=== PATIENT | male | born 1965 | race Caucasian/White ===

== ENCOUNTER 2020-09-07 15:56 | Emergency (ER) | payer OTHER ==
[~2020-09-07] VITALS: Ht 182.9 cm; Wt 117.0 kg
--- NOTE | 2020-09-08 13:49 | EKG ---
[facility] [address] [facility] [place], [place] [address] Signed Sinus rhythm with frequent and consecutive premature ventricular complexes Cannot rule out Inferior infarct , age undetermined Abnormal ECG No previous ECGs available Confirmed by RAQUEL OWENS MD ([id number]) on 09/08/2020 1:49:22 PM Electronically Signed By: RAQUEL OWENS MD 09/08/20 1349 PATIENT NAME: ANNEMARIE SINGH JIMMY Electrocardiogram DATE OF : 65 PHYSICIAN: RAQUEL OWENS MD REPORT #: [id number] REPORT IS CONFIDENTIAL AND NOT TO BE RELEASED WITHOUT AUTHORIZATION
--- NOTE | 2020-09-08 13:50 | EKG ---
[facility] [address] [facility] [place] [address] Signed Sinus rhythm with marked sinus arrhythmia Inferior infarct (cited on or before 07-SEP-2020) Abnormal ECG When compared with ECG of 07-SEP-2020 15:57, (Unconfirmed) premature ventricular complexes are no longer present Questionable change in initial forces of Inferior leads QT has shortened Confirmed by RAQUEL OWENS MD ([id number]) on 09/08/2020 1:49:44 PM Electronically Signed By: RAQUEL OWENS MD 09/08/20 1350 PATIENT NAME: ANNEMARIE SINGH Electrocardiogram DATE OF : 65 PHYSICIAN: RAQUEL OWENS MD REPORT #: [id number] REPORT IS CONFIDENTIAL AND NOT TO BE RELEASED WITHOUT AUTHORIZATION
== END 2020-09-07 17:35 | disposition short-term general hospital (02) ==
LOC: ED 15:56
DX: I25.10 Atherosclerotic heart disease of native coronary artery without angina pectoris (principal); I47.2 Ventricular tachycardia; I25.2 Old myocardial infarction; E11.9 Type 2 diabetes mellitus without complications; Z87.891 Personal history of nicotine dependence; Z88.8 Allergy status to other drugs, medicaments and biological substances; Z20.822 Contact with and (suspected) exposure to COVID-19
CPT/HCPCS: 71045; 80053; 84484; 85025; 93005; 93010; 96374; 96375; 99285-25; C9803; J0282; J2270; U0003

== ENCOUNTER 2020-11-28 14:49 | Emergency (ER) | payer OTHER ==
[~2020-11-28] VITALS: Ht 182.9 cm; Wt 117.0 kg
[2020-11-28] MEDS ORDERED: ALLOPURINOL100 MG PO (14:57)
[2020-11-28] MEDS ORDERED: ATORVASTATIN CA40 MG PO (14:57)
[2020-11-28] MEDS ORDERED: XARELTO20 MG PO (14:58)
[2020-11-28] MEDS ORDERED: LEVOTHYROXINE137 MCG PO (14:58)
[2020-11-28] MEDS ORDERED: NITROGLYCERIN0.4 MG SL (14:58)
[2020-11-28] MEDS ORDERED: FEBUXOSTAT40 MG PO (14:59)
[2020-11-28] MEDS ORDERED: CLOPIDOGREL75 MG PO (14:59)
[2020-11-28] MEDS ORDERED: AMLODIPINE BES2.5 MG PO (14:59)
[2020-11-28] MEDS ORDERED: EZETIMIBE10 MG PO (14:59)
[2020-11-28] MEDS ORDERED: FAMOTIDINE20 MG PO (14:59)
[2020-11-28] MEDS ORDERED: SPIRONOLACTONE25 MG PO (15:00)
[2020-11-28] MEDS ORDERED: SOTALOL80 MG PO (15:00)
[2020-11-28] MEDS ORDERED: PANTOPRAZOLE SO40 MG PO (15:00)
[2020-11-28] MEDS ORDERED: ISOSORBIDE MONO30 MG PO (15:00)
[2020-11-28] MEDS ORDERED: ATORVASTATIN CA80 MG PO (15:01)
--- NOTE | 2020-11-29 08:20 | EKG ---
[facility] [address] [facility] [place] [address] Signed Sinus bradycardia Otherwise normal ECG When compared with ECG of 07-SEP-2020 15:58, Criteria for Inferior infarct are no longer present Inverted T waves have replaced nonspecific T wave abnormality in Inferior leads Confirmed by KALA ADAMS DO ([id number]) on 11/29/2020 8:20:03 AM Electronically Signed By: KALA ADAMS DO 11/29/20 0820 PATIENT NAME: ANNEMARIE SINGH Electrocardiogram DATE OF : 65 PHYSICIAN: KALA ADAMS DO REPORT #: [id number] REPORT IS CONFIDENTIAL AND NOT TO BE RELEASED WITHOUT AUTHORIZATION
== END 2020-11-28 17:20 | disposition home or self-care (01) ==
LOC: ED 14:49
DX: I25.10 Atherosclerotic heart disease of native coronary artery without angina pectoris (principal); E11.40 Type 2 diabetes mellitus with diabetic neuropathy, unspecified; J44.9 Chronic obstructive pulmonary disease, unspecified; F03.90 Unspecified dementia, unspecified severity, without behavioral disturbance, psychotic disturbance, mood disturbance, and anxiety; Z88.8 Allergy status to other drugs, medicaments and biological substances; Z79.899 Other long term (current) drug therapy
CPT/HCPCS: 71046; 80053; 83735; 84484; 85025; 93005; 93010; 99285-25

== ENCOUNTER 2021-12-13 10:25 | Day surgery (SDC) | payer OTHER ==
--- NOTE | 2021-12-12 20:18 | EKG ---
[facility] [address] [facility] [place] [address] Signed Poor data quality Sinus bradycardia Low voltage QRS Inferior infarct , age undetermined Abnormal ECG When compared with ECG of 28-NOV-2020 14:52, Inferior infarct is now present Confirmed by PRIYANKA ELIZALDE MD ([id number]) on 12/12/2021 8:18:30 PM Electronically Signed By: PRIYANKA ELIZALDE MD 12/12/212017 PATIENT NAME: ANNEMARIE SINGH JIMMY Electrocardiogram DATE OF : 65 PHYSICIAN: PRIYANKA ELIZALDE MD REPORT #: [id number] REPORT IS CONFIDENTIAL AND NOT TO BE RELEASED WITHOUT AUTHORIZATION
[~2021-12-13] VITALS: Ht 182.9 cm; Wt 122.7 kg
[~2021-12-13 10:25] MED LIST: ALLOPURINOL100 MG PO; AMLODIPINE BES2.5 MG PO; ATORVASTATIN CA40 MG PO; ATORVASTATIN CA80 MG PO; CLOPIDOGREL75 MG PO; COMBIVENT RESPIM4 GM INH; D3 DOTS50 MCG PO; EZETIMIBE10 MG PO; FAMOTIDINE20 MG PO; FEBUXOSTAT40 MG PO; INDAPAMIDE1.25 MG PO; ISOSORBIDE MONO30 MG PO; LAMICTAL100 MG PO; LEVOTHYROXINE137 MCG PO; NITROGLYCERIN0.4 MG SL; PANTOPRAZOLE SO40 MG PO; SINGULAIR10 MG PO; SOTALOL80 MG PO; SPIRONOLACTONE25 MG PO; VENTOLIN HFA18 GM; XARELTO20 MG PO
--- NOTE | 2021-12-13 10:49 | NUR ---
UNSTEADY ON FEET X2 YEARS. LAST FALL 1 WEEK AGO. REPORTS NO INJURY.
--- NOTE | 2021-12-13 10:50 | NUR ---
LLE PAIN 2/10 FROM LYPHEDEMA REPORTS PT.
--- NOTE | 2021-12-13 12:28 | NUR ---
12/13/21 1228 Bettina Carter 1210-PATIENT ARRIVED TO PACU ON 6L MASK NONAROUSABLE LAYING PRONE. GREEN SPUTUM COMING FROM PATIENTS NOSTRILS AND MOUTH. RN, [employer] REPOSITIONED PATIENT TO THE SIDE AND SUCTIONED. PATIENT BECAME REACTIVE TO VERBAL STIMULI OPENING EYES. SR IVF INFUSING. 1212-BP TAKEN WHILE ON LEFT SIDE PATIENT REACTIVE TO VERBAL STIMULI REPORTS "SORE THROAT" 6L MASK 97% RR EVEN 1215-PATIENT REPOSITIONED WITH RNS ASSISTANCE TO BACK AND HOB ELEVATED. PATIENT REQUESTING WATER. PLACED ON RA RR EVEN 1224-PATIENT AWAKE DENIES PAIN OR NAUSEA. HOB ELEVATED PATIENT TAKING SIPS OF WATER. RA 96% RR EVEN. PATIENT DENIES SORE THROAT.
--- NOTE | 2021-12-15 15:04 | PATH ---
[facility] [address] [facility] [place], [place] [address] Signed SPECIMEN(S): A BONE MARROW SPECIMEN(S): B COMPREHENSIVE FLOW CYTOMETRY ONLY, BM EDTA CLINICAL HISTORY: 56-year-old male with chronic hypogammaglobulinemia. Evaluate for B-cell malignancy. D80.1 (non-familial hypogammaglobulinemia) DIAGNOSIS SUMMARY: Peripheral blood - No morphologic abnormalities identified. Bone marrow aspirate smears and core biopsy: - Normocellular bone marrow with trilineage progressive hematopoiesis. - Negative for morphologic features of myelodysplastic syndrome (MDS). - Negative for morphologic features of myeloproliferative neoplasm (MPN). - Negative for features of B-cell lymphoproliferative neoplasm. - Negative for increase in plasma cells or infiltrative bone marrow processes. - Please see Diagnostic Comment. DIAGNOSTIC COMMENT: The patient's history of chronic renal disease and hypogammaglobulinemia is noted. Overall, morphologic examination of the bone marrow is unremarkable with no abnormal population of B-cells or plasma cells identified. Concurrent flow cytometry also shows normal phenotype. NA:slh:C2NR PERIPHERAL BLOOD: HEMOGRAM ([facility], 12/13/2021): WBC 7.3 K/uL, RBC 4.71 M/uL, HGB 14.9 g/dL, HCT 44.1%, MCV 93.7 fL, MCH 31.6 pg, MCHC 33.7 g/dL, RDW 13.9%, PLT 202 K/uL. DIFFERENTIAL COUNT (manual): 69% neutrophils, 15% lymphocytes, 10% monocytes and 6% eosinophils. Review of peripheral blood smear and CBC data demonstrate that the RBCs are normal in number and are normocytic and normochromic with no anemia present. The WBCs are also normal in number and distribution. The neutrophils show unremarkable morphology. The neutrophils show unremarkable morphology. No immature cells are seen. The lymphocytes and monocytes show a spectrum of reactive morphology. The platelets are normal in number and unremarkable in morphology. BONE MARROW: BONE MARROW ASPIRATE SMEARS AND IMPRINTS: The bone marrow aspirate smears are PATIENT NAME: ANNEMARIE SINGH PATHOLOGY DATE OF : 65 REPORT #: [id number] PHYSICIAN: AUGUSTO RICHARDSON PCP: NO PRIMARY CARE PHYSICIAN REPORT IS CONFIDENTIAL AND NOT TO BE RELEASED WITHOUT AUTHORIZATION [facility] [address] [place], [place] [address] Signed hypocellular with rare bone marrow particles present. Only a few scattered hematopoietic elements are present showing progressive ordinary maturation. There is no increase in blasts noted. No dyshematopoiesis is identified. Occasional rare megakaryocytes are encountered. BONE MARROW DIFFERENTIAL COUNT (100 cell count): 3% blasts, 1% promyelocytes, 6% myelocytes, 25% segmented neutrophils, 16% lymphocytes, 3% monocytes, 5% eosinophils, and 40% erythroid. BONE MARROW CORE BIOPSY: The bone marrow core biopsy demonstrates normocellular bone marrow for age with an average cellularity of 40%. Trilineage hematopoiesis is present with progressive ordinary maturation. There are no lymphoid aggregates, granulomas or metastatic tumor cells present. The megakaryocytes are scattered and appear normal in number, morphology and distribution. SPECIAL STAINS (performed with appropriate reactive control): - Iron (aspirate smear): Increased storage iron; negative for ring sideroblasts. - Iron (block A1): Increased storage iron; negative for ring sideroblasts. - Reticulin stain (block A1): Mild increase in bone marrow reticulin fibrosis, MF-1. IMMUNOHISTOCHEMICAL STAINS (performed on block A1 with appropriate reactive control): - CD34: Negative for increased number of blasts. - CD117: Negative for increased number of blasts. - CD20: Negative for increased number of B-cells. - CD138: Highlights scattered plasma cells (2-3%). - CD71: Highlight erythroid precursors. - Myeloperoxidase: Highlight myeloid precursors. - Factor VIII: Highlights megakaryocytes. NA:[facility] FLOW CYTOMETRY: Bone marrow aspirate, flow cytometry: - No increase in blasts (1% myeloblasts). - Normal myeloid maturation. - No atypical lymphoid cell population. - See comment. COMMENT: While no hematopoietic abnormality is detected in this study, correlation with clinical, morphologic, and genetic findings is recommended for full interpretation and to assess for disease processes not fully examined by flow cytometry analysis, including PATIENT NAME: ANNEMARIE SINGH PATHOLOGY DATE OF : 65 REPORT #: [id number] PHYSICIAN: AUGUSTO PATHOLOGY PCP: NO PRIMARY CARE PHYSICIAN REPORT IS CONFIDENTIAL AND NOT TO BE RELEASED WITHOUT AUTHORIZATION [facility] [address] [place], [place] [address] Signed myelodysplastic syndrome and myeloproliferative neoplasm. FLOW CYTOMETRY ANALYSIS: FLOW DIFFERENTIAL (% Total CD45 vs. SSC gating): Myeloid 85%; Lymphoid 6%; Monocyte 3%; Dim CD45/Blast: 1%. Cell Count: 3.2 x 10*3/uL. POPULATION ANALYSIS: BLASTS: Analysis of the dim CD45 gate demonstrates 1% myeloblasts by CD34/CD117. LYMPHOID CELLS: The lymphocyte gate comprises 6% of total events and includes 91% T-cells with a CD4:CD8 ratio of 1.5:1 and normal avilez T-cell antigen expression. 2% of lymphocytes are polyclonal B-cells with a kappa:lambda ratio of 1.4:1. The remainders are NK-cells. MYELOID CELLS: The myeloid population comprises 85% of the total events. No aberrant or immature immunophenotypic expression is detected. MONOCYTES: The monocyte population comprises 3% of the total events. Monocytes are not increased. No aberrant immunophenotypic expression is detected. PLASMA CELLS: A significant plasma cell population is not detected in the neg-dimCD45/CD38 screening gate. ANTIBODIES USED: KAPPA, LAMBDA, CD20, CD10, CD19, CD23, CD38, CD16, CD56, CD8, CD5, CD2, CD4, CD7, CD3, CD14, CD33, CD13, HLADR, CD34, CD117, CD15, CD45: TOTAL ANTIBODIES USED: 23. TCS GROSS DESCRIPTION: Two specimens are received in two containers, labeled "DK." A. The specimen, labeled "DK, core," is received in formalin and consists of two cylindrical bone core fragments measuring 0.2 in diameter and 1.0-1.2 in length. The specimen is entirely submitted in cassette A1 following decalcification in Immunocal. Cold ischemic time: Cannot be determined because of lack of information Approximate time in formalin: Six hours B. The specimen, labeled "DK, no clot," is received in formalin and consists of no clot material or tissue received. No block is submitted. Bone marrow inventory also includes: Two peripheral smears, it two heparin tubes (one bone marrow, one peripheral blood) AT (under the direct supervision of a pathologist) The Gross Description was prepared using a voice recognition system. The report was reviewed for accuracy; however, sound-alike word errors, addition and/or deletions may occur. If there is any PATIENT NAME: ANNEMARIE SINGH PATHOLOGY DATE OF : 65 REPORT #: [id number] PHYSICIAN: AUGUSTO PATHOLOGY PCP: NO PRIMARY CARE PHYSICIAN REPORT IS CONFIDENTIAL AND NOT TO BE RELEASED WITHOUT AUTHORIZATION [facility] [address] [place], [place] [address] Signed question about this report, please contact Client Services. ADDITIONAL NOTES: Immunohistochemical and/or in situ hybridization studies were performed on this case with the appropriate positive controls that react as expected. This test was developed and its performance characteristics determined by [employer]. It has not been cleared or approved by the U.S. Food and Drug Administration. The FDA has determined that such clearance or approval is not necessary. This test is used for clinical purposes. It should not be regarded as investigational or for research. [facility] is certified under the Clinical Laboratory Improvement Amendments of 1988 (CLIA) as qualified to perform high complexity clinical laboratory testing. This assay has not been validated for specimens that have been decalcified. In this case, certain antibodies were performed by both immunohistochemistry and flow cytometry analysis because flow cytometry analysis did not fully explain all the light microscopic findings. Immunohistochemistry aided in the analysis. Both methods are deemed medically necessary in this case. This test was developed and its performance characteristics determined by [employer]. It has not been cleared or approved by the US Food and Drug Administration. The FDA does not require this test to go through premarket FDA review. This test is used for clinical purposes. It should not be regarded as investigational or for research. This laboratory is certified under the Clinical Laboratory Improvement Amendments (CLIA) as qualified to perform high complexity clinical laboratory testing. PERFORMING LABORATORY: The technical component was performed by [facility], [address] [place] [address] (CLIA#: [id number]). Professional interpretation was performed by [facility], [facility], [address] [place] [address] (CLIA#: [id number]) FINAL DIAGNOSIS PERFORMED BY: Roxana Ramirez MD, FACP, Dec 14 2021 2:04PM The technical component was performed by [facility], [address] [place] [address] (CLIA# [id number]). [facility], [address] [place] [address] (CLIA#: [id number]) PATIENT NAME: ANNEMARIE SINGH PATHOLOGY DATE OF : 65 REPORT #: [id number] PHYSICIAN: AUGUSTO PATHOLOGY PCP: NO PRIMARY CARE PHYSICIAN REPORT IS CONFIDENTIAL AND NOT TO BE RELEASED WITHOUT AUTHORIZATION [address] [address] Signed IMAGES: A: [id number] A: [id number] Diagnostician: Roxana Ramirez MD, FACP Pathologist Electronically Signed 12/15/2021 Copies: ~ PATIENT NAME: ANNEMARIE SINGH PATHOLOGY DATE OF : 65 REPORT #: [id number] PHYSICIAN: AUGUSTO PATHOLOGY PCP: NO PRIMARY CARE PHYSICIAN REPORT IS CONFIDENTIAL AND NOT TO BE RELEASED WITHOUT AUTHORIZATION
== END 2021-12-13 12:50 | disposition home or self-care (01) ==
LOC: OPS 10:25 → DS 10:25 → OPS 12:00 → DS 12:00 → OPS 12:50
PROVIDERS: ATTEND Specialist
PROC: 079T3ZX Drainage of Bone Marrow, Percutaneous Approach, Diagnostic (ICD-10-PCS; 2021-12-13)
PROC: 07DR3ZX Extraction of Iliac Bone Marrow, Percutaneous Approach, Diagnostic (ICD-10-PCS; principal; 2021-12-13 12:00)
DX: D80.1 Nonfamilial hypogammaglobulinemia (principal); I25.10 Atherosclerotic heart disease of native coronary artery without angina pectoris; J45.909 Unspecified asthma, uncomplicated; E11.22 Type 2 diabetes mellitus with diabetic chronic kidney disease; N18.9 Chronic kidney disease, unspecified; G47.33 Obstructive sleep apnea (adult) (pediatric); I25.2 Old myocardial infarction; Z87.891 Personal history of nicotine dependence; Z88.8 Allergy status to other drugs, medicaments and biological substances; Z88.0 Allergy status to penicillin; Z88.6 Allergy status to analgesic agent
CPT/HCPCS: 36415; 80074; 85025; J2001; J2405; J2704; J3010; J7121

== ENCOUNTER 2024-04-15 13:16 | Emergency (ER) | payer OTHER ==
[~2024-04-15] VITALS: Ht 182.9 cm; Wt 127.2 kg
[~2024-04-15 13:16] MED LIST changes: +PREDNISONE20 MG PO; +VENTOLIN HFA18 GM INH
[2024-04-15] MEDS ORDERED: ALBUTEROL/IPRATROPIUM 3 ML NEB INH PRN (13:30)
[2024-04-15] MEDS ORDERED: ALBUTEROL SULFATE 0.5% 2.5 MG/0.5 ML VIAL INH ONE (13:30)
[2024-04-15 13:41] LABS: BASOPHILS 0.4 % (0-2); EOSINOPHILS 3.2 % (0-6); HEMATOCRIT 46.3 % (35.0-50.0); LYMPHOCYTES 9.6 % (24-44); MCH 32.7 (27-36); MCHC 34.5 g/dl (30-36); MCV 94.5 fl (81-99); MONOCYTES 9.5 % (0-12); NEUTROPHILS 77.3 % (39-80); PLATELET COUNT 191 K/uL (140-440); RBC 4.89 M/ul (4.3-5.7); RDW 13.9 (10.5-15.0)
[2024-04-15] MEDS ORDERED: MAGNESIUM SULFATE 2 GM/50 ML BAG IV ONE (14:00)
[2024-04-15 14:03] LABS: ALBUMIN 3.9 g/dL (3.4-5.0); ALBUMIN/GLOBULIN RATIO 1.34 (1.1-2.4); ANION GAP 14.2 (7-21); BILIRUBIN, TOTAL 0.9 ng/dL (0.2-1.0); BUN/CREATININE RATIO 6.47 (6.0-28.6); CALCIUM 10.2 mg/dL (8.5-10.1); CREATININE, SERUM 1.39 mg/dL (0.70-1.30); MAGNESIUM 1.7 mg/dL (1.8-2.4); POTASSIUM 4.2 mmol/L (3.5-5.1); PROTEIN, TOTAL 6.8 g/dL (6.4-8.2)
[2024-04-15 15:07] LABS: LACTIC ACID, BLOOD 2.4 mmol/L (0.4-2.0)
[2024-04-15 15:11] LABS: INFLUENZA B NAA NEGATIVE (NEGATIVE); RESPIRATORY SYNCYTIAL VIR NAA NEGATIVE (NEGATIVE)
[2024-04-15] MEDS ORDERED: CEFTRIAXONE/SODIUM CHLORIDE 2 GM/100 ML PIGGYBACK IV ONE (15:45)
[2024-04-15] MEDS ORDERED: ALBUTEROL/IPRATROPIUM 3 ML NEB INH ONE (16:00)
[2024-04-15] MEDS ORDERED: SODIUM CHLORIDE 0.9% 1,000 ML IV PRN (16:00)
[2024-04-15] MEDS ORDERED: PREDNISONE20 MG PO (17:51)
[2024-04-15] MEDS ORDERED: CEFDINIR300 MG PO (17:51)
[2024-04-15 18:12] VITALS: BP 121/75
--- NOTE | 2024-04-16 14:40 | EKG ---
[facility] [address] [facility] [place], [place] [address] Signed Sinus tachycardia Low voltage QRS Inferior infarct , age undetermined Cannot rule out Anterior infarct , age undetermined Abnormal ECG No previous ECGs available Confirmed by Gadiel Trinidad MD ([id number]) on 04/16/2024 2:40:31 PM Electronically Signed By: GADIEL TRINIDAD DO 04/16/24 1440 PATIENT NAME: ANNEMARIE SINGH JIMMY Electrocardiogram DATE OF : 65 PHYSICIAN: GADIEL TRINIDAD DO REPORT #: [id number] REPORT IS CONFIDENTIAL AND NOT TO BE RELEASED WITHOUT AUTHORIZATION
== END 2024-04-15 18:12 | disposition home or self-care (01) ==
LOC: ED 13:16
PROVIDERS: Emergency Medicine
DX: J45.901 Unspecified asthma with (acute) exacerbation (principal); J18.9 Pneumonia, unspecified organism; J44.0 Chronic obstructive pulmonary disease with (acute) lower respiratory infection; D68.51 Activated protein C resistance; I25.2 Old myocardial infarction; E11.9 Type 2 diabetes mellitus without complications; G70.00 Myasthenia gravis without (acute) exacerbation; F03.A0 Unspecified dementia, mild, without behavioral disturbance, psychotic disturbance, mood disturbance, and anxiety; Z95.5 Presence of coronary angioplasty implant and graft; Z88.8 Allergy status to other drugs, medicaments and biological substances; Z79.890 Hormone replacement therapy; Z79.01 Long term (current) use of anticoagulants; Z79.899 Other long term (current) drug therapy
CPT/HCPCS: 36415; 71045; 80053; 83605; 83735; 83880; 84484; 85025; 87502; 93005; 93010; 94640; J0696; J3475; J7030; U0002

== ENCOUNTER 2025-02-04 12:23 | Emergency (ER) | payer OTHER ==
[~2025-02-04] VITALS: Ht 182.9 cm; Wt 127.8 kg
[~2025-02-04 12:23] MED LIST changes: +CEFDINIR300 MG PO
[2025-02-04 12:33] LABS: BASOPHILS 1.2 % (0.2-1.2); EOSINOPHILS 8.2 % (0.8-7.0); LYMPHOCYTES 21.2 % (21.8-53.1); MCH 31.7 PG (25.7-32.2); MCHC 34.1 g/dL (32.3-36.5); MCV 92.8 fL (79.0-92.2); MONOCYTES 7.6 % (5.3-12.2); NEUTROPHILS 61.1 % (34.0-67.9); RBC 5.02 M/uL (4.63-6.08)
[2025-02-04 12:55] LABS: ALT (SGPT) 55.0 U/L (14-59); AST (SGOT) 29.0 U/L (15-37); GLOMERULAR FILTRATION RATE,EST 60.0 mL/min (>60); PROTEIN, TOTAL 6.8 g/dL (6.4-8.2); UREA NITROGEN 13.0 mg/dL (7-18)
[2025-02-04 13:00] LABS: INR 1.18 (0.80-1.30); PROTIME 14.6 Sec (11.2-14.2)
[2025-02-04 14:49] VITALS: BP 150/100
--- NOTE | 2025-02-05 23:02 | EKG ---
[facility] [address] [place] [address] Signed Normal sinus rhythm Low voltage QRS Inferior infarct , age undetermined Abnormal ECG When compared with ECG of 15-APR-2024 13:24, Vent. rate has decreased Confirmed by Casey Avelar MD () on 02/05/2025 11:02:35 PM Electronically Signed By: CASEY AVELAR MD 02/05/252301 PATIENT NAME: ANNEMARIE SINGH Electrocardiogram DATE OF : 65 PHYSICIAN: CASEY AVELAR MD REPORT #: [id number] REPORT IS CONFIDENTIAL AND NOT TO BE RELEASED WITHOUT AUTHORIZATION
--- NOTE | 2025-02-05 23:04 | EKG ---
[facility] [address] [facility] [place] [address] Signed Normal sinus rhythm Inferior infarct (cited on or before 15-APR-2024) Abnormal ECG When compared with ECG of 04-FEB-2025 12:26, QT has shortened Confirmed by Casey Avelar MD () on 02/05/2025 11:04:06 PM Electronically Signed By: CASEY AVELAR MD 02/05/25 2304 PATIENT NAME: ANNEMARIE SINGH Electrocardiogram DATE OF : 65 PHYSICIAN: CASEY AVELAR MD REPORT #: [id number] REPORT IS CONFIDENTIAL AND NOT TO BE RELEASED WITHOUT AUTHORIZATION
== END 2025-02-04 14:53 | disposition home or self-care (01) ==
LOC: ED 12:23
PROVIDERS: Emergency Medicine
DX: R07.2 Precordial pain (principal); J44.9 Chronic obstructive pulmonary disease, unspecified; E11.9 Type 2 diabetes mellitus without complications; Z88.8 Allergy status to other drugs, medicaments and biological substances
CPT/HCPCS: 36415; 71045; 80053; 83735; 84484; 85025; 85610; 93005; 93010; 99285-25

== ENCOUNTER 2025-05-27 19:22 | Emergency (ER) | payer OTHER ==
[~2025-05-27] VITALS: Ht 182.9 cm; Wt 127.8 kg
[2025-05-27 19:43] LABS: BASOPHILS 0.7 % (0.2-1.2); EOSINOPHILS 2.8 % (0.8-7.0); LYMPHOCYTES 22.9 % (21.8-53.1); MCH 30.6 PG (25.7-32.2); MCHC 33.7 g/dL (32.3-36.5); MCV 90.8 fL (79.0-92.2); MONOCYTES 8.4 % (5.3-12.2); NEUTROPHILS 64.8 % (34.0-67.9); RBC 5.66 M/uL (4.63-6.08)
[2025-05-27] MEDS ORDERED: ASMANEX HFA13 GM IH (19:45)
[2025-05-27 20:03] LABS: INR 0.96 (0.80-1.30); PROTIME 12.1 Sec (11.2-14.2)
[2025-05-27 20:07] LABS: ALT (SGPT) 34.0 U/L (14-59); AST (SGOT) 15.0 U/L (15-37); GLOMERULAR FILTRATION RATE,EST 56.0 mL/min (>60); PROTEIN, TOTAL 7.2 g/dL (6.4-8.2); UREA NITROGEN 16.0 mg/dL (7-18)
[2025-05-27] MEDS ORDERED: ASPIRIN 81 MG CHEW PO ONE (20:30)
[2025-05-27] MEDS ORDERED: MORPHINE SULFATE 4 MG/ML VIAL IV PRN (20:30)
[2025-05-27] MEDS ORDERED: NITROGLYCERIN 0.4 MG SUBL SL PRN (20:30)
[2025-05-27] MEDS ORDERED: NITROGLYCERIN 50MG/D5W 250 ML IV SCH (21:15)
[2025-05-27] MEDS ORDERED: ATORVASTATIN 40 MG TAB PO ONE (22:45)
[2025-05-27] MEDS ORDERED: HEPARIN SOD,PORK IN 0.45% NACL 500 ML IV SCH (22:45)
[2025-05-28 00:32] VITALS: BP 131/87
--- NOTE | 2025-05-28 12:12 | EKG ---
[facility] [address] [facility] [place] [address] Signed Normal sinus rhythm Left axis deviation Incomplete left bundle branch block Nonspecific ST and T wave abnormality Abnormal ECG When compared with ECG of 04-FEB-2025 13:45, Vent. rate has increased BY 38 BPM Incomplete left bundle branch block is now present Confirmed by Gadiel Trinidad DO ([id number]) on 05/28/2025 12:12:23 PM Electronically Signed By: GADIEL TRINIDAD DO 05/28/25 1212 PATIENT NAME: ANNEMARIE SINGH JIMMY Electrocardiogram DATE OF : 65 PHYSICIAN: GADIEL TRINIDAD DO REPORT #: [id number] REPORT IS CONFIDENTIAL AND NOT TO BE RELEASED WITHOUT AUTHORIZATION
== END 2025-05-28 00:34 | disposition short-term general hospital (02) ==
LOC: ED 19:22
PROVIDERS: Emergency Medicine
DX: I21.4 Non-ST elevation (NSTEMI) myocardial infarction (principal); J44.89 Other specified chronic obstructive pulmonary disease; E11.9 Type 2 diabetes mellitus without complications; Z79.02 Long term (current) use of antithrombotics/antiplatelets; Z79.899 Other long term (current) drug therapy; Z88.8 Allergy status to other drugs, medicaments and biological substances
CPT/HCPCS: 36415; 71045; 80053; 83735; 84484; 85025; 85379; 85610; 93005; 93010; 96374; 96375; 99285-25; A9270; J1644